=== PATIENT | female | born 1985 | race Caucasian/White ===

== ENCOUNTER 2017-10-14 15:33 | Emergency (ER) | payer OTHER ==
[~2017-10-14] VITALS: Ht 160 cm; Wt 98.9 kg
[~2017-10-14 15:33] MED LIST: ABILIFY2 MG PO; KLONOPIN0.5 M1 PO; REMERON15 M2 PO; ZOFRAN4 MG PO
[2017-10-14 15:36] VITALS: BP 136/99
[2017-10-14] MEDS ORDERED: BACTRIM,SEPT1 TABLET PO (15:51)
== END 2017-10-14 16:20 | disposition home or self-care (01) ==
LOC: EME 15:33
PROC: 3E0234Z Introduction of Serum, Toxoid and Vaccine into Muscle, Percutaneous Approach (ICD-10-PCS; principal; 2017-10-14)
DX: S81.031A Puncture wound without foreign body, right knee, initial encounter (principal); W20.8XXA Other cause of strike by thrown, projected or falling object, initial encounter; Z23 Encounter for immunization; R20.0 Anesthesia of skin; R20.2 Paresthesia of skin; Z86.718 Personal history of other venous thrombosis and embolism; F17.200 Nicotine dependence, unspecified, uncomplicated
CPT/HCPCS: 99281; 99283

== ENCOUNTER 2017-11-11 05:43 | Emergency (ER) | payer SELFPAY ==
[~2017-11-11] VITALS: Ht 160 cm; Wt 98.7 kg
[~2017-11-11 05:43] MED LIST changes: +BACTRIM,SEPT1 TABLET PO
[2017-11-11] MEDS ORDERED: PREDNISONE20 MG PO ×2 (06:15→12:31)
[2017-11-11] MEDS ORDERED: ATARAX,VISTARIL25 MG PO (06:15)
[2017-11-11 06:41] VITALS: BP 122/87
== END 2017-11-11 06:42 | disposition home or self-care (01) ==
LOC: EME 05:43
DX: L24.7 Irritant contact dermatitis due to plants, except food (principal); K50.90 Crohn's disease, unspecified, without complications; Z86.718 Personal history of other venous thrombosis and embolism; Z79.01 Long term (current) use of anticoagulants; F17.200 Nicotine dependence, unspecified, uncomplicated
CPT/HCPCS: 99281; 99284; J7512; Q0177